=== PATIENT | male | born 2000 | race Caucasian/White ===

== ENCOUNTER → 2023-03-18 | Outpatient (CLI) | payer OTHER | LOC: MHCPAIN 13:35 ==

== ENCOUNTER → 2023-03-18 | Outpatient (CLI) | payer OTHER | LOC: MHCPAIN 10:00 | DX: M54.50 Low back pain, unspecified (principal); G89.29 Other chronic pain; M79.18 Myalgia, other site | CPT/HCPCS: G0463; J0665; J1040 ==